=== PATIENT | male | born 1990 | race Caucasian/White ===

== ENCOUNTER 2017-08-30 15:53 | Emergency (ER) | payer SELFPAY ==
[~2017-08-30] VITALS: Ht 182.8 cm; Wt 104.3 kg
[2017-08-30] MEDS ORDERED: NAPROSYN500 MG PO (16:42)
[2017-08-30] MEDS ORDERED: Peridex 473 ML473 ML PO (16:42)
[2017-08-30] MEDS ORDERED: PENICILLIN VK500 MG PO (16:42)
== END 2017-08-30 16:49 | disposition home or self-care (01) ==
LOC: ED 15:53
DX: K02.9 Dental caries, unspecified (principal); R03.0 Elevated blood-pressure reading, without diagnosis of hypertension; F17.200 Nicotine dependence, unspecified, uncomplicated